=== PATIENT | female | born 1965 | race Two or more races ===

== ENCOUNTER 2022-06-17 19:27 | Emergency (ER) | payer OTHER ==
[~2022-06-17] VITALS: Ht 154.9 cm; Wt 102.1 kg
[2022-06-17 19:33] VITALS: BP_SYST 150
[2022-06-17] MEDS ORDERED: NAPR-690 PO (20:43)
[2022-06-17 20:50] VITALS: BP_SYST 142
== END 2022-06-17 20:50 | disposition home or self-care (01) ==
LOC: SED 19:27
DX: S33.5XXA Sprain of ligaments of lumbar spine, initial encounter (principal); S83.91XA Sprain of unspecified site of right knee, initial encounter; I10 Essential (primary) hypertension; Z79.899 Other long term (current) drug therapy; V89.2XXA Person injured in unspecified motor-vehicle accident, traffic, initial encounter; Y93.89 Activity, other specified; Y92.89 Other specified places as the place of occurrence of the external cause; Y99.8 Other external cause status
CPT/HCPCS: 72100-TC; 73560-TC; 99284